=== PATIENT | female | born 1995 | race Caucasian/White ===

== ENCOUNTER 2017-08-25 17:43 | Emergency (ER) | payer SELFPAY ==
[2017-08-25 18:10] VITALS: BP 107/63; TEMP 98.3
[2017-08-25] MEDS ORDERED: cefTRIAXone (Rocephin) 250 mg Inj IM STA (18:33)
--- NOTE | 2017-08-25 18:33 | ED PDOC ---
Arrival/HPI - General Chief Complaint: Female Genitourinary Time Seen by Provider: 08/25/17 17:48 Historian: Patient - History of Present Illness Narrative History of Present Illness (Text): 08/25/17 18:33 This 22 yo female with pmh chlamydia, presents to this ED c/o vaginal discharge and pelvic pain x 7 days. Patient stated she noticed vaginal discharge described a white yellowish. Discharge has been worsening. Patient admits having sexual intercourse with her boyfriend and girlfriend. Patient denies fever, sob, cp, rectal bleeding, urinary symptoms, hematuria, vaginal bleeding, dizziness, or abnormal gait. Time/Duration: 1 week Context: Home Past Medical History - Provider Review Nursing Documentation Reviewed: Yes - Psychiatric Hx Anxiety: Yes Hx Substance Use: Yes (CANNABIS) - Surgical History Other/Comment: AB Family/Social History - Physician Review Nursing Documentation Reviewed: Yes Family/Social History: Other (noncontributory) Smoking Status: Heavy Smoker > 10 Cigarettes Daily Hx Alcohol Use: No Hx Substance Use: Yes (CANNABIS) Allergies/Home Meds Allergies/Adverse Reactions: Allergies No Known Allergies Allergy (Verified 08/25/17 18:05) Review of Systems - Review of Systems Constitutional: Normal. absent: Fatigue, Weight Change, Fevers Eyes: Normal ENT: Normal Respiratory: Normal Cardiovascular: Normal Gastrointestinal: Other (pelvic pain). absent: Constipation, Diarrhea, Nausea, Vomiting, Appetite Changes, Anorexia Genitourinary Female: Vaginal Discharge. absent: Dysuria, Frequency, Hematuria , Urine Output Changes, Vaginal Bleeding Musculoskeletal: Normal Skin: Normal. absent: Rash Neurological: Normal. absent: Headache, Dizziness, Focal Weakness, Gait Changes , Speech Changes, Facial Droop Endocrine: Normal Hemo/Lymphatic: Normal Psychiatric: Normal Physical Exam Vital Signs Temp Pulse Resp BP Pulse Ox 08/25/17 19:21 98.3 F 78 17 98 08/25/17 18:05 98.3 F 73 16 107/63 99 Temperature: Afebrile Blood Pressure: Normal Pulse: Regular Respiratory Rate: Normal Appearance: Positive for: Well-Appearing, Non-Toxic, Comfortable Pain Distress: None Mental Status: Positive for: Alert and Oriented X 3 - Systems Exam Head: Present: Atraumatic, Normocephalic Pupils: Present: PERRL Extroacular Muscles: Present: EOMI Conjunctiva: Present: Normal Mouth: Present: Moist Mucous Membranes Neck: Present: Normal Range of Motion Respiratory/Chest: Present: Clear to Auscultation, Good Air Exchange. No: Respiratory Distress, Accessory Muscle Use Cardiovascular: Present: Regular Rate and Rhythm, Normal S1, S2. No: Murmurs Abdomen: Present: Normal Bowel Sounds. No: Tenderness, Distention, Peritoneal Signs, Rebound, Guarding Genitourinary/Pelvic Exam: Present: Normal External Genitalia, Vaginal Discharge (white discharge), Cervical Motion Tendernes, Cervical os Closed, Odor (fishy), Other (Dena Hewitt was programmer analyst). No: Vaginal Bleeding, Vaginal Lesions, Adenexal Tenderness, Adenexal Mass Back: Present: Normal Inspection. No: CVA Tenderness Upper Extremity: Present: Normal Inspection. No: Cyanosis, Edema Lower Extremity: Present: Normal Inspection. No: Edema Neurological: Present: GCS=15, CN II-XII Intact, Speech Normal, Motor Func Grossly Intact, Normal Sensory Function, Normal Cerebellar Funct, Gait Normal, Memory Normal Skin: Present: Warm, Dry, Normal Color. No: Rashes Psychiatric: Present: Alert, Oriented x 3, Normal Insight, Normal Concentration Medical Decision Making ED Course and Treatment: 08/25/17 20:01 Re-evaluation. Patient feels better. Discussed results and plan with patient who expresses understanding. All questions answered and there is agreement with the plan to discharge home with instructions. Patient stable for discharge. Return if symptoms persist or worsen. Patient was recommended to review urine culture, and STD test in 3-5 days with [facility] Re-evaluation Time: 20:01 Reassessment Condition: Re-examined, Improved - Lab Interpretations Lab Results: Lab Results 08/25/17 18:45: Urine Color Yellow, Urine Appearance Clear, Urine pH 6.0, Ur Specific Jet 1.020, Urine Protein Trace H, Urine Glucose (UA) Negative, Urine Ketones Negative, Urine Blood Negative, Urine Nitrate Negative, Urine Bilirubin Negative, Urine Urobilinogen 0.2, Ur Leukocyte Esterase Small H, Urine RBC 1 - 3, Urine WBC 5 - 10, Ur Epithelial Cells 6 - 8, Amorphous Sediment Few, Urine Bacteria Many, Urine Other Uyeast, Urine HCG, Qual Negative - Medication Orders Current Medication Orders: Discontinued Medications Azithromycin (Zithromax) 1,000 mg PO STAT STA PRN Reason: Protocol Stop: 08/25/17 18:35 Last Admin: 08/25/17 19:19 Dose: 1,000 mg Ceftriaxone Sodium (Rocephin) 250 mg IM STAT STA PRN Reason: Protocol Stop: 08/25/17 18:34 Last Admin: 08/25/17 19:19 Dose: 250 mg IM Administration Charges Document 08/25/17 19:19 [email or web address] (Rec: 08/25/17 19:19 [email or web address] [id number]) Injection Site MAR Injection Site Left Gluteus Louie Charges for Administration # of IM Administrations 1 Fluconazole (Diflucan) 200 mg PO STAT STA PRN Reason: Protocol Stop: 08/25/17 19:34 Metronidazole (Flagyl) 2,000 mg PO STAT STA PRN Reason: Protocol Stop: 08/25/17 18:35 Last Admin: 08/25/17 19:19 Dose: 2,000 mg Disposition/Present on Arrival - Present on Arrival Any Indicators Present on Arrival: No History of DVT/PE: No History of Uncontrolled Diabetes: No Urinary Catheter: No History of Decub. Ulcer: No History Surgical Site Infection Following: None - Disposition Have Diagnosis and Disposition been Completed?: Yes Diagnosis: Cervicitis, Vaginal discharge Disposition: HOME/ ROUTINE Disposition Time: 20:01 Patient Plan: Discharge Condition: GOOD Discharge Instructions (ExitCare): Vaginal Discharge (ED) Additional Instructions: Call private doctor for follow up visit in 1-2 days. Take medication as instructed. return to emergency if symptoms worsen. review STD test with your doctor in 3-5 days. if positive have sexual partner get tested. Do not have sexual intercourse after a repeat STD test done at your doctor office shown negative Prescriptions: Cephalexin [cephalexin] 500 mg PO BID #10 cap Referrals: [facility] [Outside] - [facility] with [facility] [Outside] - Follow up with primary Forms: [employer] (Polish), WORK NOTE
[2017-08-25 18:58] LABS: URINE BILIRUBIN NEGATIVE (NEGATIVE); URINE BLOOD NEGATIVE (NEGATIVE); URINE GLUCOSE (UA) NEGATIVE (NEGATIVE); URINE KETONE NEGATIVE (NEGATIVE); URINE LEUKOCYTE ESTERASE SMALL Leu/uL (NEGATIVE); URINE PROTEIN TRACE mg/dL (<30 mg/dL); URINE UROBILINOGEN 0.2 E.U./dL (<1 E.U./dL)
[2017-08-25 19:00] LABS: URINE APPEARANCE CLEAR (CLEAR); URINE COLOR YELLOW (YELLOW)
[2017-08-25 19:05] LABS: URINE AMORPHOUS SEDIMENT FEW; URINE BACTERIA MANY (NEG)
[2017-08-25 19:22] VITALS: O2SAT 98
[2017-08-25 20:10] VITALS: PULSE 88; RESP 20
== END 2017-08-25 20:10 | disposition home or self-care (01) ==
LOC: ED 17:43
DX: N72 Inflammatory disease of cervix uteri (principal)
CPT/HCPCS: 81001; 84703; 87086; 87491; 87591; 96372; 99283; J0696

== ENCOUNTER 2017-12-22 10:08 | Emergency (ER) | payer MEDICAID, OTHER ==
[2017-12-22 10:09] VITALS: BMI 18.5
[2017-12-22 10:14] VITALS: BP 100/63; PULSE 76; RESP 16; TEMP 98.7; O2SAT 98
--- NOTE | 2017-12-22 10:51 | ED PDOC ---
Arrival/HPI - General Chief Complaint: Abnormal Skin Integrity Time Seen by Provider: 12/22/17 10:47 Historian: Patient - History of Present Illness Narrative History of Present Illness (Text): 12/22/17 10:48 This 22 yo female who denies pmh, presents to this ED c/o b/l toes pruritic rash x 7 days. Patient also stated rash has been spreading to her fingers. Patient denies other somatic complains. Denies allergies Time/Duration: 1 week Context: Home Past Medical History - Provider Review Nursing Documentation Reviewed: Yes - Infectious Disease Hx of Infectious Diseases: None - Psychiatric Hx Psychophysiologic Disorder: Yes Hx Anxiety: Yes Hx Substance Use: Yes (CANNABIS) - Surgical History Hx Dilation and Curettage: Yes Other/Comment: AB - Anesthesia Hx Anesthesia: Yes Hx Anesthesia Reactions: No Hx Malignant Hyperthermia: No Family/Social History - Physician Review Nursing Documentation Reviewed: Yes Family/Social History: Other (noncontributory) Smoking Status: Light Smoker < 10 Cigarettes Daily Hx Alcohol Use: No Hx Substance Use: Yes (CANNABIS) Allergies/Home Meds Allergies/Adverse Reactions: Allergies No Known Allergies Allergy (Verified 12/22/17 10:10) Review of Systems - Review of Systems Constitutional: Normal. absent: Fatigue, Weight Change, Fevers Eyes: Normal ENT: Normal Respiratory: Normal. absent: SOB, Cough, Wheezing Cardiovascular: Normal Gastrointestinal: Normal Genitourinary Female: Normal Musculoskeletal: Normal Skin: Rash, Pruritis Neurological: Normal Endocrine: Normal Hemo/Lymphatic: Normal Psychiatric: Normal Physical Exam Vital Signs Temp Pulse Resp BP Pulse Ox 12/22/17 10:10 98.7 F 76 16 100/63 98 Temperature: Afebrile Blood Pressure: Normal Pulse: Regular Respiratory Rate: Normal Appearance: Positive for: Well-Appearing, Non-Toxic, Comfortable Pain Distress: None Mental Status: Positive for: Alert and Oriented X 3 - Systems Exam Head: Present: Atraumatic, Normocephalic Pupils: Present: PERRL Extroacular Muscles: Present: EOMI Conjunctiva: Present: Normal Mouth: Present: Moist Mucous Membranes Pharnyx: Present: Normal. No: ERYTHEMA, EXUDATE, TONSILS ENLARGED Neck: Present: Normal Range of Motion Respiratory/Chest: Present: Clear to Auscultation, Good Air Exchange. No: Respiratory Distress, Accessory Muscle Use, Wheezes, Retracting Cardiovascular: Present: Regular Rate and Rhythm, Normal S1, S2. No: Murmurs Abdomen: No: Tenderness Upper Extremity: Present: Normal Inspection, Normal ROM, NORMAL PULSES, Neurovascularly Intact, Capillary Refill < 2s. No: Cyanosis, Edema Lower Extremity: Present: NORMAL PULSES, Normal ROM, Neurovascularly Intact, Capillary Refill < 2 s, Other ((+) jt like rash seen on toe webs of both feet. No cellulitis. No fungal infection visuialized). No: Edema, CALF TENDERNESS, Temperature Abnormalties Neurological: Present: GCS=15, CN II-XII Intact, Speech Normal Skin: Present: Warm, Dry, Normal Color. No: Rashes Psychiatric: Present: Alert, Oriented x 3, Normal Insight, Normal Concentration Medical Decision Making ED Course and Treatment: 12/22/17 11:07 Re-evaluation. Patient feels better. Discussed results and plan with patient who expresses understanding. All questions answered and there is agreement with the plan to discharge home with instructions. Patient stable for discharge. Return if symptoms persist or worsen. Re-evaluation Time: 11:07 Reassessment Condition: Re-examined, Improved Disposition/Present on Arrival - Present on Arrival Any Indicators Present on Arrival: No History of DVT/PE: No History of Uncontrolled Diabetes: No Urinary Catheter: No History of Decub. Ulcer: No History Surgical Site Infection Following: None - Disposition Have Diagnosis and Disposition been Completed?: Yes Diagnosis: Scabies Disposition: HOME/ ROUTINE Disposition Time: 11:08 Patient Plan: Discharge Condition: GOOD Discharge Instructions (ExitCare): Scabies (DC) Additional Instructions: Call private doctor for follow up visit in 1-2 days. Call antitank assault gunner if rash worsen. You need to clean all cloths, sheets, etc with hot water. Iron all cloths, etc. Apply medication on your body for 12 hours. Return to emergency if rash worsen Prescriptions: Permethrin 5% [Permethrin] 1 applic TP DAILY #1 tube Referrals: Xochitl Black MD [Staff Provider] - Follow up with primary Forms: [employer] (German)
== END 2017-12-22 11:30 | disposition home or self-care (01) ==
LOC: ED 10:08
DX: B86 Scabies (principal); F17.210 Nicotine dependence, cigarettes, uncomplicated

== ENCOUNTER 2018-12-26 14:36 | Emergency (ER) | payer OTHER ==
[2018-12-26 14:38] VITALS: BMI 18.5
[2018-12-26 14:55] VITALS: RESP 18
--- NOTE | 2018-12-26 15:35 | ED PDOC ---
Arrival/HPI <Huy Langford - Last Filed: 12/26/18 17:05> - History of Present Illness Narrative History of Present Illness (Text): 12/26/18 15:32 This is a 23 year old female with unverified history of asthma who presents to [facility] emergency department for chest pain x1 day. Patient states the pain began at 6PM last night with no provoking factors. Per Patient, pain lasted 2 hours and was "sharp" in quality. Patient denies radiating pain. Patient says that the pain is now brought on when she eats/drinks. Patient otherwise denies family history of sudden , shortness of breath, previous hospitalizations, palpitations, abdominal pain, nausea, vomiting, and/or leg pain. Patient says that she recently lost her brother to suicide 7 months ago, which has been a stressor in her life. <Andrew Gonzalez - Last Filed: 12/28/18 18:37> - General Chief Complaint: Chest Pain Time Seen by Provider: 12/26/18 14:49 Past Medical History - Provider Review Nursing Documentation Reviewed: Yes - Infectious Disease Hx of Infectious Diseases: None - Reproductive Menopause: No - Psychiatric Hx Psychophysiologic Disorder: Yes Hx Anxiety: Yes Hx Substance Use: Yes (CANNABIS) - Surgical History Hx Dilation and Curettage: Yes Other/Comment: AB - Anesthesia Hx Anesthesia: Yes Hx Anesthesia Reactions: No Hx Malignant Hyperthermia: No <Andrew Gonzalez - Last Filed: 12/28/18 18:37> Family/Social History - Physician Review Nursing Documentation Reviewed: Yes Family/Social History: No Known Family HX Smoking Status: Light Smoker < 10 Cigarettes Daily Hx Alcohol Use: No Hx Substance Use: Yes (CANNABIS) <Andrew Gonzalez - Last Filed: 12/28/18 18:37> Allergies/Home Meds <Huy Langford - Last Filed: 12/26/18 17:05> <Andrew Gonzalez - Last Filed: 12/28/18 18:37> Allergies/Adverse Reactions: Allergies No Known Allergies Allergy (Verified 12/22/17 10:10) Review of Systems - Review of Systems Constitutional: Normal Eyes: Normal ENT: Normal Respiratory: Normal. absent: SOB, Cough, Sputum, Wheezing Cardiovascular: Chest Pain. absent: Palpitations, Edema Gastrointestinal: absent: Abdominal Pain, Stool Changes, Constipation, Nausea, Vomiting Genitourinary Female: absent: Dysuria, Frequency Musculoskeletal: absent: Arthralgias, Back Pain, Neck Pain Skin: absent: Rash, Pruritis, Skin Lesions Neurological: absent: Headache, Dizziness, Focal Weakness Endocrine: absent: Diaphoresis, Polyuria Hemo/Lymphatic: absent: Adenopathy, Easy Bleeding Psychiatric: absent: Depression <Andrew Gonzalez - Last Filed: 12/28/18 18:37> Physical Exam Vital Signs Temp Pulse Resp BP Pulse Ox 12/26/18 14:51 98.3 F 82 18 102/61 100 12/26/18 14:38 98.3 F 82 18 102/61 100 <Huy Langford - Last Filed: 12/26/18 17:05> Vital Signs Temp Pulse Resp BP Pulse Ox 12/26/18 14:51 98.3 F 82 18 102/61 100 Temperature: Afebrile Blood Pressure: Normal Pulse: Regular Respiratory Rate: Normal Appearance: Positive for: Well-Appearing, Non-Toxic, Comfortable Pain Distress: None Mental Status: Positive for: Alert and Oriented X 3 - Systems Exam Head: Present: Atraumatic, Normocephalic Pupils: Present: PERRL Extroacular Muscles: Present: EOMI Conjunctiva: Present: Normal Mouth: Present: Moist Mucous Membranes Neck: Present: Normal Range of Motion Respiratory/Chest: Present: Good Air Exchange. No: Respiratory Distress, Accessory Muscle Use, Wheezes Cardiovascular: Present: Regular Rate and Rhythm, Normal S1, S2. No: Murmurs Abdomen: Present: Normal Bowel Sounds. No: Tenderness, Distention, Peritoneal Signs Upper Extremity: Present: Normal Inspection. No: Cyanosis, Edema Lower Extremity: Present: Normal Inspection. No: Edema Neurological: Present: GCS=15, CN II-XII Intact, Speech Normal Skin: Present: Warm, Dry, Normal Color. No: Rashes Psychiatric: Present: Alert, Oriented x 3, Normal Insight, Normal Concentration <Andrew Gonzalez - Last Filed: 12/28/18 18:37> Medical Decision Making - Lab Interpretations Lab Results: Urine Color Yellow (YELLOW) 12/26/18 16:00 Urine Appearance Clear (CLEAR) 12/26/18 16:00 Urine pH 6.0 (4.7-8.0) 12/26/18 16:00 Ur Specific [place] >= 1.030 (1.005-1.035) 12/26/18 16:00 Urine Protein Negative mg/dL (<30 mg/dL) 12/26/18 16:00 Urine Glucose (UA) Negative mg/dL (NEGATIVE) 12/26/18 16:00 Urine Ketones Negative mg/dL (NEGATIVE) 12/26/18 16:00 Urine Blood Negative (NEGATIVE) 12/26/18 16:00 Urine Nitrate Negative (NEGATIVE) 12/26/18 16:00 Urine Bilirubin Negative (NEGATIVE) 12/26/18 16:00 Urine Urobilinogen 0.2 E.U./dL (<1 E.U./dL) 12/26/18 16:00 Ur Leukocyte Esterase Negative Rebel/uL (NEGATIVE) 12/26/18 16:00 - RAD Interpretation Radiology Orders: 12/26/18 15:31 CHEST PORTABLE [RAD] Stat - Medication Orders Current Medication Orders: Discontinued Medications Ketorolac Tromethamine (Toradol) 15 mg IVP STAT STA Stop: 12/26/18 15:32 <Huy Langford - Last Filed: 12/26/18 17:05> ED Course and Treatment: 12/26/18 15:37 This is a 23 year old female with unverified history of asthma who presents to [facility] emergency department for chest pain x1 day. Atypical Chest Pain Imaging: - Chest X-ray - EKG Medications: - Toradol 15mg IVP once Reassess and disposition 12/26/18 16:24 Chest X-ray: unremarkable for active disease (read by me) - RAD Interpretation Radiology Orders: 12/26/18 15:31 CHEST PORTABLE [RAD] Stat - Medication Orders Current Medication Orders: Ketorolac Tromethamine (Toradol) 15 mg IVP STAT STA Stop: 12/26/18 15:32 <Andrew Gonzalez - Last Filed: 12/28/18 18:37> Disposition/Present on Arrival - Present on Arrival Any Indicators Present on Arrival: No - Disposition Have Diagnosis and Disposition been Completed?: Yes Disposition Time: 17:06 Patient Plan: Discharge <Huy Langford - Last Filed: 12/26/18 17:05> - Present on Arrival Any Indicators Present on Arrival: No History of DVT/PE: No History of Uncontrolled Diabetes: No Urinary Catheter: No History of Decub. Ulcer: No History Surgical Site Infection Following: None - Disposition Have Diagnosis and Disposition been Completed?: Yes Patient Plan: Discharge <Andrew Gonzalez - Last Filed: 12/28/18 18:37> - Disposition Diagnosis: Chest pain, Anxiety Disposition: HOME/ ROUTINE Condition: STABLE Discharge Instructions (ExitCare): Chest Pain That Is Not Caused by the Heart (DC), Anxiety, Adult (DC), Chest Pain (ED) Print Language: URDU Additional Instructions: Please follow up in clinic in 1 week Referrals: Laurence Beckham MD [Medical Doctor] - Follow up with primary [facility] at [facility] [Outside] - Follow up with primary Forms: SCHOOL NOTE, WORK NOTE, [employer] (Polish)
[2018-12-26 16:12] LABS: URINE BILIRUBIN NEGATIVE (NEGATIVE); URINE BLOOD NEGATIVE (NEGATIVE); URINE GLUCOSE (UA) NEGATIVE (NEGATIVE); URINE LEUKOCYTE ESTERASE NEGATIVE Leu/uL (NEGATIVE); URINE PROTEIN NEGATIVE mg/dL (<30 mg/dL); URINE UROBILINOGEN 0.2 E.U./dL (<1 E.U./dL)
[2018-12-26 16:17] LABS: URINE APPEARANCE CLEAR (CLEAR); URINE COLOR YELLOW (YELLOW)
--- NOTE | 2018-12-26 17:12 | RAD ---
Date of service: 12/26/2018 HISTORY: Chest pain COMPARISON: No prior. FINDINGS: LUNGS: The lungs are well inflated and clear. PLEURA: No pleural effusions or pneumothorax. CARDIOVASCULAR: The heart is normal in size. No aortic atherosclerotic calcifications present. OSSEOUS STRUCTURES: Within normal limits for the patient's age. VISUALIZED UPPER ABDOMEN: Normal. OTHER FINDINGS: None. IMPRESSION: No active pulmonary disease.
[2018-12-26 17:39] VITALS: BP 110/68; PULSE 76; TEMP 98; O2SAT 98
--- NOTE | 2018-12-26 21:48 | CARD ---
APPROVED REPORT Date of service: 12/26/2018 EKG Measurement Heart [id number] DC [id number] [id number] <Conclusion> Normal sinus rhythm with sinus arrhythmia NDSTT abnormalities Borderline ECG
== END 2018-12-26 17:35 | disposition home or self-care (01) ==
LOC: ED 14:36
DX: R07.9 Chest pain, unspecified (principal); F41.9 Anxiety disorder, unspecified

== ENCOUNTER 2019-01-13 08:10 | Emergency (ER) | payer OTHER ==
[2019-01-13 08:10] VITALS: BMI 18.5
[2019-01-13 08:20] VITALS: O2SAT 99
--- NOTE | 2019-01-13 08:42 | ED PDOC ---
Arrival/HPI - General Chief Complaint: ENT Problem Time Seen by Provider: 01/13/19 08:28 Historian: Patient - History of Present Illness Narrative History of Present Illness (Text): 01/13/19 08:36 A 23 year old female presents to the emergency department complaining of sore throat for the past 2 days. Patient reports it hurts to swallow. She mentions recently her sister had the flu. Patient denies any fever, chills, body aches, vomiting, rash, joint pain, or any other complaints at this time. Admits to smoking since she was 13 years old. States she has seasonal allergies. Past Medical History - Provider Review Nursing Documentation Reviewed: Yes - Infectious Disease Hx of Infectious Diseases: None - Reproductive Menopause: No - Psychiatric Hx Psychophysiologic Disorder: Yes Hx Anxiety: Yes Hx Substance Use: Yes (CANNABIS) - Surgical History Hx Dilation and Curettage: Yes Other/Comment: AB - Anesthesia Hx Anesthesia: Yes Hx Anesthesia Reactions: No Hx Malignant Hyperthermia: No Family/Social History - Physician Review Nursing Documentation Reviewed: Yes Family/Social History: No Known Family HX Smoking Status: Light Smoker < 10 Cigarettes Daily Hx Alcohol Use: No Hx Substance Use: Yes (CANNABIS) Allergies/Home Meds Allergies/Adverse Reactions: Allergies seasonal Allergy (Uncoded 01/13/19 08:20) CONGESTION Home Medications: Home Meds Medication Instructions Recorded Confirmed No Known Home Med 01/13/19 01/13/19 Review of Systems - Physician Review All systems were reviewed & negative as marked: Yes - Review of Systems ENT: Sore Throat Gastrointestinal: absent: Vomiting Musculoskeletal: absent: Other (no joint pain) Skin: absent: Rash Physical Exam - Physical Exam Narrative Physical Exam (Text): Gen: NAD, cooperative, well appearing, non-toxic. Head: NCAT. HEENT: mild erythema, no exudates, no enlargement, no cervical lymphadenopathy. EYES: PERRL, EOMI, conjunctiva clear MOUTH: moist MM, posterior pharynx without erythema or exudate, uvula midline. CV: (+) S1S2, RRR, no M/G/R LUNGS: CTA B/L, No W/R/R, good air movement Abd: Soft, NTTP, no guarding, rebound or rigidity. Neuro: AAO x 3, GCS 15, CN 2-12 intact, motor and sensory grossly intact, 5/5 muscle strength B/L UE's and LE's. ext: no cyanosis or edema Vital Signs Reviewed: Yes Vital Signs Temp Pulse Resp BP Pulse Ox 01/13/19 08:17 99.3 F 90 18 96/63 L 99 Temperature: Afebrile Blood Pressure: Normal Pulse: Regular Respiratory Rate: Normal Appearance: Positive for: Well-Appearing, Non-Toxic, Comfortable Pain Distress: None Mental Status: Positive for: Alert and Oriented X 3 Medical Decision Making ED Course and Treatment: 01/13/19 08:46 Impression: 23 year old female with sore throat. Physical exam shows mild erythema to pharynx, no exudates, no enlargement, no cervical lymphadenopathy. Plan: -- Rapid Strep Throat Test -- Reassess and disposition Progress Notes: 01/13/19 09:24 Strep test negative. Patient to be discharged. - Scribe Statement The provider has reviewed the documentation as recorded by the Josephine Davison Provider Scribe Attestation: All medical record entries made by the Scribshena were at my direction and personally dictated by me. I have reviewed the chart and agree that the record accurately reflects my personal performance of the history, physical exam, medical decision making, and the department course for this patient. I have also personally directed, reviewed, and agree with the discharge instructions and disposition. Disposition/Present on Arrival - Present on Arrival Any Indicators Present on Arrival: No History of DVT/PE: No History of Uncontrolled Diabetes: No Urinary Catheter: No History of Decub. Ulcer: No History Surgical Site Infection Following: None - Disposition Have Diagnosis and Disposition been Completed?: Yes Diagnosis: Pharyngitis Disposition: HOME/ ROUTINE Disposition Time: 09:18 Patient Plan: Discharge Condition: GOOD Discharge Instructions (ExitCare): Sore Throat, Adult (DC) Additional Instructions: FELISHA BLANCHARD, thank you for letting us take care of you today. Your provider was Yenny Hunt MD and you were treated for sore throat. The emergency medical care you received today was directed at your acute symptoms. If you were prescribed any medication, please fill it and take as directed. It may take several days for your symptoms to resolve. Return to the Emergency Department if your symptoms worsen, do not improve, or if you have any other problems. Please contact your doctor or call one of the physicians/clinics you have been referred to that are listed on the Patient Visit Information form that is included in your discharge packet. Bring any paperwork you were given at discharge with you along with any medications you are taking to your follow up visit. Our treatment cannot replace ongoing medical care by a primary care provider outside of the emergency department. Thank you for allowing the [facility] team to be part of your care today. If you had an X-Ray or CT scan: A Radiologist will review the ED reading if any change in treatment is needed we will contact you. If you had a blood, urine, or wound culture: It will take several days for the results, if any change in treatment is needed we will contact you. If you had an STI test: It will take 48 hours for the results. Please call after 1 week if you have not heard back. Referrals: [facility] [Outside] - Follow up with primary [facility] [Outside] - Follow up with primary Laurence Beckham MD [Medical Doctor] - Follow up with primary Forms: [employer] ([place] Citizen), WORK NOTE
[2019-01-13 09:30] VITALS: BP 91/54; PULSE 68; RESP 16; TEMP 97.7
== END 2019-01-13 09:28 | disposition home or self-care (01) ==
LOC: ED 08:10
DX: J02.9 Acute pharyngitis, unspecified (principal)